=== PATIENT | male | born 1940 | race Caucasian/White ===

== ENCOUNTER 2018-08-26 09:50 | Emergency (ER) | payer MEDICARE, BC ==
[~2018-08-26] VITALS: Ht 172.7 cm; Wt 74.8 kg
[2018-08-26] MEDS ORDERED: LIDOCAINE 2% (UROJET) 10 ML JELLY MM ONE ×2 (09:57→10:00)
--- NOTE | 2018-08-26 10:05 | NUR ---
PT A/OX4, PRESENTS TO THE ER C/O LOWER ABD PAIN THAT STARTED THIS AM. PT REPORTS HEMATURIA SINCE WEDNESDAY AND RECENT PROSTATE SURGERY APPROXIMATELY 4 WEEKS AGO. PT URINATED A SMALL AMOUNT OF URINE INTO THE TOILET IN THE DEPARTMENT. UPON ASSESSMENT, BLOOD CLOT NOTED AT THE URETHRAL OPENING ON THE GLANS PENIS. LOWER ABD FIRM AND DISTENED. VSS. PT DENIES C/P, SOB, N/V/D, DIZZINESS, HEADACHE.
--- NOTE | 2018-08-26 10:10 | NUR ---
UPON INSERTION OF THE TAPIA CATH, APPROXIMATELY 600 ML OF BRIGHT RED OUTPUT NOTED. PT REPORTS RELIEF AND IS RESTING COMFORTABLY IN BED.
[2018-08-26 10:12] LABS: BASOPHILS # (AUTO) 0.1 K/uL (0.0-8.0); BASOPHILS % (AUTO) 0.7 % (0.0-2.0); EOSINOPHILS # (AUTO) 0.6 K/uL (0.0-0.7); EOSINOPHILS % (AUTO) 7.9 % (0.0-7.0); HEMATOCRIT 32.5 % (36.7-47.1); LYMPHOCYTES # (AUTO) 2.3 K/uL (20.0-40.0); LYMPHOCYTES % (AUTO) 30.3 % (20.5-51.5); MEAN CORPUSCULAR HGB CONC 34 g/dL (32.5-36.3); MEAN CORPUSCULAR VOLUME 94.6 fL (73.0-96.2); MONOCYTES # (AUTO) 0.3 K/uL (2.0-10.0); MONOCYTES % (AUTO) 3.8 % (0.0-11.0); NEUTROPHILS # (AUTO) 4.3 K/uL (1.8-8.9); NEUTROPHILS % (AUTO) 57.3 % (38.5-71.5); PLATELET COUNT (AUTO) 260 K/uL (152-348); RED BLOOD CELL COUNT(AUTO) 3.43 MIL/uL (4.06-5.63); WHITE BLOOD COUNT (AUTO) 7.5 K/uL (3.6-10.2)
[2018-08-26 10:20] LABS: CARBON DIOXIDE 23 mmol/L (21-32); CHLORIDE 103 mmol/L (98-107); CREATININE 1.6 mg/dL (0.6-1.3); GLUCOSE 180 mg/dL (74-106); POTASSIUM 4.1 mmol/L (3.5-5.1); UREA NITROGEN, BLOOD 29 mg/dL (7-18)
--- NOTE | 2018-08-26 10:24 | NUR ---
PT REPORTS SENSE OF FULLNESS. BLADDER IRRIGATION SLOW, MANUALLY IRRIGATED TO RESTORE ADEQUATE IRRIGATION FLOW.
--- NOTE | 2018-08-26 12:28 | NUR ---
Patient discharged to home in stable conditon. Written and verbal after care instructions given. Patient verbalizes understanding of instructions. PT D/C W/ PRSECRIPTION AND LEG BAG FOR TAPIA CATH. PT VERBALIZES UNDERSTANDING RE TAPIA CATH CARE INSTRUCTIONS. ALL BELONGINGS W/ PT. PT SELF-AMBULATED W/O DIFFICULTY.
[2018-08-26 12:29] VITALS: BP 110/55
== END 2018-08-26 12:30 | disposition home or self-care (01) ==
LOC: ER 09:50
DX: R31.9 Hematuria, unspecified (principal); R33.9 Retention of urine, unspecified; E78.00 Pure hypercholesterolemia, unspecified; Z88.0 Allergy status to penicillin
CPT/HCPCS: 36415; 85025; 85730; A4217; A4663

== ENCOUNTER 2018-08-27 20:09 | Emergency (ER) | payer MEDICARE, BC ==
[~2018-08-27] VITALS: Ht 172.7 cm; Wt 78.0 kg
[2018-08-27] MEDS ORDERED: LIDOCAINE 2% (UROJET) 10 ML JELLY MM ONE ×2 (20:30)
[2018-08-27] MEDS ORDERED: ACETAMINOPHEN ES 500 MG TABLET ONE (20:51)
[2018-08-27] MEDS ORDERED: ACETAMINOPHEN ES 500 MG TABLET PO ONE (21:00)
--- NOTE | 2018-08-27 22:07 | NUR ---
Patient discharged to home in stable conditon. Written and verbal after care instructions given. Patient verbalizes understanding of instructions.
== END 2018-08-27 22:08 | disposition home or self-care (01) ==
LOC: ER 20:11
DX: Z46.6 Encounter for fitting and adjustment of urinary device (principal); R33.9 Retention of urine, unspecified; R31.9 Hematuria, unspecified; E78.00 Pure hypercholesterolemia, unspecified; Z88.0 Allergy status to penicillin
CPT/HCPCS: 51702; A4663; A9150